=== PATIENT | female | born 1985 | race Caucasian/White ===

== ENCOUNTER 2020-11-14 09:06 | Emergency (ER) | payer OTHER ==
[2020-11-14 09:26] VITALS: BP 115/89; PULSE 92; TEMP 97.9; BMI 27.3
[2020-11-14] MEDS ORDERED: FAMOTIDINE 20 MG TABLET ONE (09:50)
[2020-11-14] MEDS ORDERED: ACETAMINOPHEN 325 MG TABLET (FP) ONE (09:50)
[2020-11-14] MEDS ORDERED: ACETAMINOPHEN 325 MG TABLET (FP) PO ONE (10:07)
[2020-11-14] MEDS ORDERED: FAMOTIDINE 20 MG TABLET PO ONE (10:07)
== END 2020-11-14 11:07 | disposition home or self-care (01) ==
LOC: JER 09:06
DX: R19.7 Diarrhea, unspecified (principal)
CPT/HCPCS: 87045; 87046; 87177; 87186; 87209; 87324; 87449; 99283-25; C9803; U0003

== ENCOUNTER 2024-05-11 04:13 | Day surgery (SDC) | payer OTHER ==
[2024-05-07 15:52] VITALS: BMI 26.4
[2024-05-11] MEDS: ceFAZolin SODIUM 1 GM VIAL IVPB ONE
[2024-05-11] MEDS ORDERED: MIDAZOLAM HCL 2 MG/2 ML SINGLE DOSE VIAL ONE (08:08)
[2024-05-11] MEDS ORDERED: LIDOCAINE HCL/PF 2% SDV 5ML VIAL ONE (08:08)
[2024-05-11] MEDS ORDERED: DEXAMETHASONE SOD PHOSPHATE 4 MG/1 ML VIAL ONE (08:08)
[2024-05-11] MEDS ORDERED: PROPOFOL 20 ML ONE ×2 (08:08→09:52)
[2024-05-11] MEDS ORDERED: oxyCODONE HCL 5 MG TABLET PO PRN ×3 (08:44→10:33)
[2024-05-11] MEDS ORDERED: ONDANSETRON 4 MG/2 ML VIAL IVPUSH PRN ×2 (08:44→10:33)
[2024-05-11] MEDS ORDERED: LACTATED RINGERS SOLUTION 1,000 ML IV SCH ×2 (08:45→10:45)
[2024-05-11] MEDS ORDERED: IBUPROFEN 800 MG/8 ML IJ IVPB PRN (10:33)
[2024-05-11] MEDS ORDERED: KETOROLAC TROMETHAMINE 30 MG/1 ML VIAL ONE (10:35)
[2024-05-11] MEDS ORDERED: ELECTROLYTE-148 SOLN 1,000 ML IV SCH (10:45)
[2024-05-11 11:25] VITALS: TEMP 97.3
[2024-05-11 15:05] VITALS: RESP 20
[2024-05-11 15:07] VITALS: BP 118/80; PULSE 69
== END 2024-05-11 14:36 | disposition home or self-care (01) ==
LOC: JASU-SURG 04:13
PROVIDERS: ATTEND Obstetrics & Gynecology
PROC: 0UB98ZZ Excision of Uterus, Via Natural or Artificial Opening Endoscopic (ICD-10-PCS; principal; 2024-05-11 09:30)
DX: N92.1 Excessive and frequent menstruation with irregular cycle (principal); N84.0 Polyp of corpus uteri
CPT/HCPCS: 81025; 88305-TC; 94760